=== PATIENT | male | born 1960 | race African-American/Black ===

== ENCOUNTER 2019-04-24 06:02 | Day surgery (SDC) | payer OTHER ==
[2019-04-17 12:06] VITALS: BMI 30.7
[2019-04-24] MEDS ORDERED: SUCCINYLCHOLINE CHLORIDE 200 MG/10 ML SYRINGE ONE (07:06)
[2019-04-24] MEDS ORDERED: PROPOFOL 20 ML ONE (07:06)
[2019-04-24] MEDS ORDERED: MIDAZOLAM HCL 2 MG/2 ML SINGLE DOSE VIAL ONE (07:06)
[2019-04-24] MEDS ORDERED: ROCURONIUM BROMIDE 50 MG/5 ML VIAL ONE (07:06)
[2019-04-24] MEDS ORDERED: KETOROLAC TROMETHAMINE 30 MG/1 ML VIAL ONE (07:07)
[2019-04-24] MEDS ORDERED: LIDOCAINE HCL/PF 2% SDV 5ML VIAL ONE (07:07)
[2019-04-24] MEDS ORDERED: ONDANSETRON 4 MG/2 ML VIAL ONE (07:07)
[2019-04-24] MEDS ORDERED: DEXAMETHASONE SOD PHOSPHATE 4 MG/1 ML VIAL ONE (07:07)
[2019-04-24] MEDS ORDERED: LIDOCAINE HCL 2% (20ML MULTI-DOSE VIAL) ONE (07:16)
[2019-04-24] MEDS ORDERED: LIDOCAINE HCL 2% (50ML VIAL) INF ONE (07:41)
[2019-04-24 08:32] VITALS: PULSE 66; TEMP 97
[2019-04-24 08:46] VITALS: BP 110/66
--- NOTE | 2019-04-25 18:58 | OP ---
DATE OF OPERATION: 04/24/2019 PREOPERATIVE DIAGNOSIS: Right ring trigger finger. POSTOPERATIVE DIAGNOSIS: Right ring trigger finger. OPERATIVE PROCEDURE: Right ring trigger finger release. SURGEON: Jn Anthony MD ANESTHESIA: Local with sedation. COMPLICATIONS: None. ESTIMATED BLOOD LOSS: Minimal. INDICATION FOR PROCEDURE: The patient is a 58-year-old male with the above finding indicated for operative treatment. Risks, benefits, alternatives were discussed with the patient at length. Proper informed consent was obtained. PROCEDURE: After proper identification of patient and correct operative site patient was brought to the operating room and placed supine on the operating table, all prominences well padded. Sedation and local anesthesia were given. Right upper extremity was prepped and draped in the usual sterile fashion. A well-padded tourniquet was placed with a sterile prep. Esmarch bandage used to exsanguinate right upper extremity. Tourniquet was inflated to 250 mmHg. Longitudinal incision made over the A1 beka of the ring finger. Incision was taken sharply through the skin with blunt and sharp dissection through subcutaneous tissues. A1 beka was identified and divided longitudinally. Patient was asked to flex and extend his finger and no further triggering was noted. Wound was repaired with 5-0 fast-absorbing plain gut suture and patient was reversed from sedation and brought to the recovery room in stable condition. He tolerated procedure well. JN ANTHONY M.D. [id number]
== END 2019-04-24 08:47 | disposition home or self-care (01) ==
LOC: FASU 06:02
PROVIDERS: ATTEND Orthopaedic Surgery Hand Surgery
PROC: 0LN70ZZ Release Right Hand Tendon, Open Approach (ICD-10-PCS; principal; 2019-04-24 07:30)
DX: M65.341 Trigger finger, right ring finger (principal)